=== PATIENT | female | born 1970 | race Caucasian/White ===

== ENCOUNTER 2018-07-20 22:39 | Emergency (ER) | payer OTHER ==
[~2018-07-20] VITALS: Ht 154.9 cm; Wt 98.0 kg
[2018-07-20 22:48] VITALS: BP 131/63; Ht 154.9 cm; Wt 98.0 kg
[2018-07-21 00:29] LABS: BASOPHIL % 0.6 % (0-2); PLATELET COUNT 297 x10^3mcL (130-400); RED CELL DISTRIBUTION WIDTH 14.4 % (11.5-14.5)
[2018-07-21 00:36] LABS: microscopic required? NO
[2018-07-21 00:37] LABS: CALCIUM 8.5 mg/dL (8.5-10.1); CARBON DIOXIDE 23.9 mmol/L (21-32); CHLORIDE SERUM 104 mmol/L (98-107); CREATININE SERUM 0.8 mg/dL (0.6-1.0); GFR1 > 60 mL/min; GLUCOSE SERUM 214 mg/dL (74-106); POTASSIUM SERUM 3.6 mmol/L (3.5-5.1); SODIUM SERUM 139 mmol/L (136-145)
[2018-07-21 00:42] LABS: ALBUMIN 3.4 g/dL (3.4-5.0); ALKALINE PHOSPHATASE 152 U/L (46-116); ALT/SGPT 33 U/L (14-59); AST/SGOT 18 U/L (15-37); BILIRUBIN TOTAL 0.3 mg/dL (0.20-1.00); LIPASE 390 IU/L (73-393); TOTAL PROTEIN, SERUM 6.5 g/dL (6.4-8.2)
[2018-07-21 00:58] LABS: UA SPECIFIC GRAVITY >=1.030 (1.005-1.035); urine erythrocyte NEGATIVE (NEGATIVE)
== END 2018-07-21 03:32 | disposition left against medical advice (07) ==
LOC: ED 22:39
PROVIDERS: Emergency Medicine
DX: R10.12 Left upper quadrant pain (principal); R10.32 Left lower quadrant pain; R11.2 Nausea with vomiting, unspecified; R19.7 Diarrhea, unspecified; I10 Essential (primary) hypertension; E11.9 Type 2 diabetes mellitus without complications; E78.00 Pure hypercholesterolemia, unspecified; Z90.710 Acquired absence of both cervix and uterus
CPT/HCPCS: J2270; J2405; J7030

== ENCOUNTER 2018-08-22 08:31 | Emergency (ER) | payer OTHER ==
[~2018-08-22] VITALS: Ht 154.9 cm; Wt 89.8 kg
[~2018-08-22 08:31] MED LIST: CIPRO500 MG PO; FLA500 PO; LAMOTRIGINE25 MG PO; METFORMIN HCL850 MG PO; PAXIL10 MG PO; TOPAMAX50 M1 PO
[2018-08-22 08:36] VITALS: BP 124/53; Ht 154.9 cm; Wt 89.8 kg
== END 2018-08-22 10:00 | disposition home or self-care (01) ==
LOC: ED 08:31
DX: R10.9 Unspecified abdominal pain (principal); E11.9 Type 2 diabetes mellitus without complications; I10 Essential (primary) hypertension; E78.00 Pure hypercholesterolemia, unspecified; F41.9 Anxiety disorder, unspecified; Z90.49 Acquired absence of other specified parts of digestive tract; Z96.89 Presence of other specified functional implants; Z98.890 Other specified postprocedural states

== ENCOUNTER 2018-08-27 10:28 | Emergency (ER) | payer OTHER ==
[~2018-08-27] VITALS: Ht 154.9 cm; Wt 90.3 kg
[2018-08-27 10:33] VITALS: Ht 154.9 cm; Wt 90.3 kg
[2018-08-27 11:49] LABS: BASOPHIL % 0.7 % (0-2); PLATELET COUNT 234 x10^3mcL (130-400)
[2018-08-27 11:55] LABS: RED CELL DISTRIBUTION WIDTH 16.4 % (11.5-14.5)
[2018-08-27 12:07] LABS: CALCIUM 8.4 mg/dL (8.5-10.1); CARBON DIOXIDE 25.8 mmol/L (21-32); CHLORIDE SERUM 107 mmol/L (98-107); CREATININE SERUM 0.8 mg/dL (0.6-1.0); GFR1 > 60 mL/min; GLUCOSE SERUM 170 mg/dL (74-106); POTASSIUM SERUM 3.6 mmol/L (3.5-5.1); SODIUM SERUM 141 mmol/L (136-145)
[2018-08-27 12:11] LABS: ALKALINE PHOSPHATASE 108 U/L (46-116); ALT/SGPT 18 U/L (14-59); AST/SGOT 12 U/L (15-37); BILIRUBIN TOTAL 0.9 mg/dL (0.20-1.00); TOTAL PROTEIN, SERUM 6.7 g/dL (6.4-8.2)
[2018-08-27 14:28] VITALS: BP 120/80
== END 2018-08-27 14:28 | disposition home or self-care (01) ==
LOC: ED 10:28
PROVIDERS: Emergency Medicine
DX: K65.1 Peritoneal abscess (principal); I10 Essential (primary) hypertension; E11.9 Type 2 diabetes mellitus without complications; E78.00 Pure hypercholesterolemia, unspecified; F41.9 Anxiety disorder, unspecified; Z48.03 Encounter for change or removal of drains; Z90.49 Acquired absence of other specified parts of digestive tract; Z98.890 Other specified postprocedural states; Z90.710 Acquired absence of both cervix and uterus
CPT/HCPCS: 36415; Q9966; Q9967

== ENCOUNTER 2018-09-18 18:21 | Emergency (ER) | payer OTHER ==
[~2018-09-18] VITALS: Ht 154.9 cm; Wt 90.7 kg
[2018-09-18 18:56] VITALS: Ht 154.9 cm; Wt 90.7 kg
[2018-09-18 19:44] LABS: BASOPHIL % 0.4 % (0-2); PLATELET COUNT 278 x10^3mcL (130-400)
[2018-09-18 19:45] LABS: RED CELL DISTRIBUTION WIDTH 15.6 % (11.5-14.5)
[2018-09-18 20:08] LABS: CALCIUM 8.3 mg/dL (8.5-10.1); CARBON DIOXIDE 23.7 mmol/L (21-32); CHLORIDE SERUM 106 mmol/L (98-107); CREATININE SERUM 0.7 mg/dL (0.6-1.0); GFR1 > 60 mL/min; GLUCOSE SERUM 135 mg/dL (74-106); POTASSIUM SERUM 3.4 mmol/L (3.5-5.1); SODIUM SERUM 140 mmol/L (136-145)
[2018-09-18 20:12] LABS: ALKALINE PHOSPHATASE 115 U/L (46-116); ALT/SGPT 19 U/L (14-59); AST/SGOT 14 U/L (15-37); BILIRUBIN TOTAL 0.6 mg/dL (0.20-1.00); LIPASE 224 IU/L (73-393); TOTAL PROTEIN, SERUM 7.2 g/dL (6.4-8.2)
[2018-09-18 20:13] LABS: ALBUMIN 3.3 g/dL (3.4-5.0)
[2018-09-18 21:42] VITALS: BP 120/75
== END 2018-09-18 21:42 | disposition home or self-care (01) ==
LOC: ED 18:21
PROVIDERS: Emergency Medicine
DX: R10.12 Left upper quadrant pain (principal); R53.1 Weakness; M79.10 Myalgia, unspecified site; R51 Headache; I10 Essential (primary) hypertension; E11.9 Type 2 diabetes mellitus without complications; E78.00 Pure hypercholesterolemia, unspecified; F41.9 Anxiety disorder, unspecified; Z90.710 Acquired absence of both cervix and uterus; Z90.49 Acquired absence of other specified parts of digestive tract; Z96.89 Presence of other specified functional implants; Z98.890 Other specified postprocedural states
CPT/HCPCS: J2270; J2405; J7030; Q9967

== ENCOUNTER 2018-11-18 09:07 | Day surgery (SDC) | payer OTHER ==
[~2018-11-18] VITALS: Ht 154.9 cm; Wt 90.7 kg
[2018-11-18 09:26] VITALS: BP 127/91
[2018-11-18 14:04] VITALS: BP 115/80
== END 2018-11-18 12:55 | disposition home or self-care (01) ==
LOC: GI 09:07
PROVIDERS: Internal Medicine Gastroenterology
PROC: 0FPB8DZ Removal of Intraluminal Device from Hepatobiliary Duct, Via Natural or Artificial Opening Endoscopic (ICD-10-PCS; principal; 2018-11-18 10:00)
PROC: 0F798ZZ Dilation of Common Bile Duct, Via Natural or Artificial Opening Endoscopic (ICD-10-PCS; 2018-11-18 10:00)
DX: T85.590A Other mechanical complication of bile duct prosthesis, initial encounter (principal); E11.9 Type 2 diabetes mellitus without complications; I10 Essential (primary) hypertension; E66.9 Obesity, unspecified; Z68.37 Body mass index [BMI] 37.0-37.9, adult; Z80.0 Family history of malignant neoplasm of digestive organs; Z79.84 Long term (current) use of oral hypoglycemic drugs; Z90.49 Acquired absence of other specified parts of digestive tract; Y92.009 Unspecified place in unspecified non-institutional (private) residence as the place of occurrence of the external cause
CPT/HCPCS: 43260; 82962; C1769; J1610; J2250; J3490; J7030; Q9967

== ENCOUNTER 2018-11-20 02:19 | Emergency (ER) | payer OTHER ==
[~2018-11-20] VITALS: Ht 154.9 cm; Wt 91.6 kg
[2018-11-20 02:29] VITALS: Ht 154.9 cm; Wt 91.6 kg
[2018-11-20 03:42] LABS: BASOPHIL % 0.5 % (0-2); PLATELET COUNT 284 x10^3mcL (130-400); RED CELL DISTRIBUTION WIDTH 13.6 % (11.5-14.5)
[2018-11-20 03:59] LABS: CALCIUM 8.7 mg/dL (8.5-10.1); CARBON DIOXIDE 24.9 mmol/L (21-32); CHLORIDE SERUM 103 mmol/L (98-107); CREATININE SERUM 0.7 mg/dL (0.6-1.0); GFR1 > 60 mL/min; GLUCOSE SERUM 176 mg/dL (74-106); POTASSIUM SERUM 3.6 mmol/L (3.5-5.1); SODIUM SERUM 137 mmol/L (136-145)
[2018-11-20 04:03] LABS: ALKALINE PHOSPHATASE 129 U/L (46-116); ALT/SGPT 27 U/L (14-59); AST/SGOT 16 U/L (15-37); BILIRUBIN TOTAL 0.6 mg/dL (0.20-1.00); LIPASE 257 IU/L (73-393); TOTAL PROTEIN, SERUM 7.1 g/dL (6.4-8.2)
[2018-11-20 04:04] LABS: ALBUMIN 3.2 g/dL (3.4-5.0)
[2018-11-20 05:55] VITALS: BP 117/71
== END 2018-11-20 05:55 | disposition home or self-care (01) ==
LOC: ED 02:19
PROVIDERS: Emergency Medicine
DX: R10.10 Upper abdominal pain, unspecified (principal); R53.1 Weakness; F41.9 Anxiety disorder, unspecified; E11.9 Type 2 diabetes mellitus without complications; Z90.710 Acquired absence of both cervix and uterus; Z90.49 Acquired absence of other specified parts of digestive tract
CPT/HCPCS: 87804; J2270; J2405; J7030; Q0092

== ENCOUNTER 2019-05-27 07:38 | Emergency (ER) | payer OTHER ==
[~2019-05-27] VITALS: Ht 154.9 cm; Wt 88.0 kg
[2019-05-27 07:42] VITALS: BP 137/91; Ht 154.9 cm; Wt 88.0 kg
== END 2019-05-27 08:11 | disposition home or self-care (01) ==
LOC: ED 07:38
DX: J02.9 Acute pharyngitis, unspecified (principal); E11.9 Type 2 diabetes mellitus without complications; Z90.49 Acquired absence of other specified parts of digestive tract; Z98.890 Other specified postprocedural states

== ENCOUNTER 2019-07-10 14:10 | Emergency (ER) | payer OTHER ==
[~2019-07-10] VITALS: Ht 154.9 cm; Wt 87.1 kg
[2019-07-10 14:18] VITALS: Ht 154.9 cm; Wt 87.1 kg
[2019-07-10 15:43] VITALS: BP 117/75
== END 2019-07-10 15:43 | disposition home or self-care (01) ==
LOC: ED 14:10
DX: B37.3 Candidiasis of vulva and vagina (principal); F17.200 Nicotine dependence, unspecified, uncomplicated; F31.9 Bipolar disorder, unspecified; Z90.710 Acquired absence of both cervix and uterus; Z90.49 Acquired absence of other specified parts of digestive tract; Z98.890 Other specified postprocedural states
CPT/HCPCS: 99406